=== PATIENT | female | born 1995 | race Caucasian/White ===

== ENCOUNTER 2016-08-11 04:34 | Emergency (ER) | payer OTHER ==
[2016-08-11] MEDS ORDERED: KETOROLAC 30 MG/ML VIAL (J1885) As Ordered ONE (07:26)
[2016-08-11 07:30] LABS: BASO % 0.6 % (0.0-1.0); EOS # 0.1 K/mm3 (0.0-0.50); EOS % 0.9 % (0.0-3.0); LARGE UNSTAINED CELL # 0.2 K/mm3 (0.0-0.4); LARGE UNSTAINED CELL % 1.9 % (0.0-4.0); LYMPH % 35.6 % (24.0-44.0); MEAN CORPUSCULAR HEMOGLOBIN 28.4 pg (27.0-33.0); MEAN CORPUSCULAR HGB CONC 31.1 g/dl (32.0-36.5); MEAN CORPUSCULAR VOLUME 91.5 fl (80.0-96.0); MONO # 0.5 K/mm3 (0.0-0.8); MONO % 5.5 % (0.0-5.0); NEUTROPHILS # 4.5 K/mm3 (1.8-7.7); NEUTROPHILS % 55.5 % (36.0-66.0); PLATELET COUNT, AUTOMATED 308 k/mm3 (150-450); RED CELL DISTRIBUTION WIDTH 14.7 % (11.5-14.5); WHITE BLOOD COUNT 8.1 K/mm3 (4.0-10.0)
[2016-08-11 08:00] LABS: ALBUMIN 4.3 GM/DL (3.2-5.2); ALBUMIN/GLOBULIN RATIO 1.43 (1.00-1.93); ALKALINE PHOSPHATASE 63 U/L (45-117); ALT/SGPT 22 U/L (12-78); ANION GAP 7 MEQ/L (8-16); AST/SGOT 16 U/L (15-37); BILIRUBIN,DIRECT 0.1 MG/DL (0.0-0.2); BILIRUBIN,TOTAL 0.5 MG/DL (0.2-1.0); BLOOD UREA NITROGEN 11 MG/DL (7-18); CARBON DIOXIDE LEVEL 28 MEQ/L (21-32); CHLORIDE LEVEL 107 MEQ/L (98-107); CREATININE FOR GFR 0.65 MG/DL (0.55-1.02); GLUCOSE, FASTING 78 MG/DL (70-105); POTASSIUM SERUM 3.9 MEQ/L (3.5-5.1); SODIUM LEVEL 142 MEQ/L (136-145); TOTAL PROTEIN 7.3 GM/DL (6.4-8.2)
--- NOTE | 2016-08-11 09:01 | REP ---
Pelvic ultrasound non OB 08/11/2016 Indication: Right lower quadrant pain for 3 days, 89 neural female Date of last menstrual period was 07/26/2016. The patient is G1, Ab 1 Technique: Transabdominal and transvaginal ultrasound was performed of the pelvis with nieto scale, color Doppler, and spectral wave Doppler imaging . Findings: Uterus measures 7.2 x 2.9 x 4.2 cm. The endometrium is 12.2 mm in thickness. Right ovary measures 5.6 x 4.9 by 6.2 cm and contains a complex cystic area measuring 4.9 x 4.5 x 5.3 cm with some internal layering contents of varying echogenicities. The left ovary measures 1.6 x 1.5 x 2.0 cm, contains small follicles and is unremarkable. Perfusion is noted to the bilateral ovaries, therefore no evidence of torsion bilaterally. There is no free fluid in cul-de-sac Impression 1. Complex ovoid right adnexal cystic mass measuring 4.9 x 4.5 x 5.3 cm with layering of internal contents of varying echogenicity. Differential diagnosis includes hemorrhagic cyst, dermoid, endometrioma. 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 2. Unremarkable left ovary. No evidence of ovarian torsion bilaterally. 3. Endometrium is 12.2 mm in thickness and smooth. 4. No free fluid in cul-de-sac Signed by Sherita Robins MD 08/11/2016 08:53 A
--- NOTE | 2016-08-11 09:34 | EDDOCDS ---
Nurse's Notes [facility] Name: Cecilia Ferrera Age: 20 yrs Sex: Female : 1995 Arrival Date: 08/11/2016 Time: 04:34 Bed I2 / M2 Private MD: Diagnosis: Other ovarian cysts-right complex ovarian cyst 4.9x4.5x5.3 cm Presentation: 08/11 04:44 Presenting complaint: Patient states: she has had right lower quadrant pain for 2 days cz no nausea or vomiting last meal 2200 chips and cookies. pt denies UTI symptoms. Risk factors: the patient reports no vaginal bleeding. Adult Sepsis Screening: The patient does not have new or worsening altered mentation. Patient's respiratory rate is less than 22. Systolic blood pressure is greater than 100. Patient has a qSOFA score of 0- Negative Sepsis Screen. Suicide/Homicide risk assessment- the patient denies having any suicidal and/or homicidal ideations and does not present with any other emotional, behavioral or mental health complaints. Status: The patient is a dependent. Transition of care: patient was not received from another setting of care. 04:44 Acuity: JIM Level 3 cz 04:44 Method Of Arrival: Walkin/Carried/Asstd cz Triage Assessment: 04:47 General: Appears uncomfortable. Pain: Location: right lower quadrant Pain currently is cz 8 out of 10 on a pain scale. Pt Declines HIV testing. 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 none - PMHx: hearing loss bilateral; - PSHx: Tubes in ears; Adenoidectomy; Tonsillectomy; - Social history: Smoking status: Patient states was never smoker of tobacco. No barriers to communication noted, The patient speaks fluent [place], Speaks appropriately for age. - Family history: Not pertinent. - : The pt / caregiver states he / she is not on anticoagulants. Home medication list is obtained from the patient. - Exposure Risk Screening:: None identified. Screenin:26 Screening information is obtained from the patient. Primary language is S[place] T[place]an. Fall jam1 risk: No risks identified. Assistance ADL's: requires no assistance with activities of daily living. Abuse/DV Screen: The patient / caregiver reports he/she is: not in a situation that causes fear, pain or injury. Nutritional screening: No deficits noted. Exposure Risk Screening: None identified. Advance Directives: Currently, there is no health care proxy. There is no active DNR order. There is no living will. There is no Power of Plumbing Designer. Advance directive information has not previously been placed in an [facility] medical record. Further advance directive information is declined. home support is adequate. Assessment: 06:54 Reassessment: Patient appears in no apparent distress at this time. pt states no change cz in pain level awaiting room placement. 07:44 General: Appears uncomfortable, well developed, well nourished, well groomed, Behavior dls is appropriate for age, cooperative. Neurological: No deficits noted. EENT: No deficits noted. Cardiovascular: No deficits noted. Respiratory: No deficits noted. GI: Abdomen is flat, Bowel sounds present X 4 quads. Abd is soft X 4 quads Abd is tender to palpation in right lower quadrant Reports nausea. : No deficits noted. Derm: No deficits noted. Musculoskeletal: No deficits noted. 09:31 Reassessment: Patient appears in no apparent distress at this time. Patient states ttb feeling better. Patient states symptoms have improved. pt states she is comfortable going home at this time and will f/u with LOFT PATTERNMAKER Friday.. Neurological: Level of Consciousness is awake, alert. Respiratory: No deficits noted. Vital Signs: 04:47 BP 130 / 66; Pulse 71; Resp 16; Temp 99.7(TE); Pulse Ox 100% on R/A; Weight 58.97 kg; cz Height 5 ft. 2 in. (157.48 cm); 06:54 BP 120 / 64; Pulse 64; Resp 16; Temp 98.8(TE); Pulse Ox 100% ; cz 08:06 BP 122 / 76; Pulse 73; Resp 18; Temp 98.3; Pulse Ox 99% ; Pain 2/10; jam1 09:26 BP 147 / 82; Pulse 76; Resp 18; Temp 97.9; Pulse Ox 100% ; Pain 2/10; jam1 04:47 Body Mass Index 23.78 (58.97 kg, 157.48 cm) cz Vitals: 04:47 Log In Time: August 11, 2016 at 04:34. ED Course: 04:35 Patient visited by Nini Garcia. gjb 04:35 Patient moved to Waiting gjb 04:41 Patient moved to Triage 1 cz 04:46 Triage Initiated cz 04:49 Patient moved to Pre RCE cz 06:57 Patient moved to I2 / M2 jam1 07:03 Raul Hernandez PA-C is PHCP. ar2 07:03 Ronnie Singh MD is Attending Physician. ar2 07:03 Patient visited by Raul Hernandez PA-C. ar2 07:04 Pt greeted and oriented to ED. Patient advised of names of staff involved in care, jam location of call jin, wait times and NPO status. Patient has correct armband on for positive identification. Placed in gown. Bed in low position. Call light in reach. Side rails up X 1. Adult w/ patient. Door closed. 07:29 Basic Metabolic Profile Sent. dls 07:29 CBC with Diff Sent. dls 07:29 Liver Profile Sent. dls 07:30 Inserted saline lock: 20 gauge in right antecubital area and blood collected. The dls patient tolerated the procedure well. No procedures done that require assistance. 08:05 Patient moved to Ultrasound sm5 08:31 Patient moved to I2 / M2 jam1 08:45 Patient visited by Mago Peterson RN. dls 09:13 -US Pelvic Non-Ob Complete Returned. EDMS 09:16 [facility] Payment Agreement was scanned into [employer] and attached to record. lg 09:19 Juanjose Garza is Referral Physician. ar2 09:25 Referral Physician role handed off by Juanjose Garza ar2 09:25 Jared Baxter MD is Referral Physician. ar2 09:31 The patient / caregiver is instructed regarding the plan of care and ED course. ttb 09:31 Discontinued IV lock intact, bleeding controlled, pressure dressing applied, No ttb redness/swelling at site. 09:31 Labs drawn. (by ED staff). Urine collected. Clean catch specimen. ttb Administered Medications: 07:29 Drug: ketorolac 30 mg [ketorolac 30 mg/mL (1 mL) injection solution (1 mL)] Route: IVP; dls Site: right antecubital; 09:33 Follow up: Response: No Adverse Reaction; Pain is decreased ttb Point of Care Testing: Urine : 07:22 hCG Reading: Negative; jam1 Ranges: Order Results: Lab Order: Basic Metabolic Profile; SPEC'M 08/11/16 07:24 Test: GLUCOSE, FASTING; Value: 78; Range: 70-105; Units: MG/DL; Status: F Test: BLOOD UREA NITROGEN; Value: 11; Range: 7-18; Units: MG/DL; Status: F Test: CREATININE FOR GFR; Value: 0.65; Range: 0.55-1.02; Units: MG/DL; Status: F Test: SODIUM LEVEL; Value: 142; Range: 136-145; Units: MEQ/L; Status: F Test: POTASSIUM SERUM; Value: 3.9; Range: 3.5-5.1; Units: MEQ/L; Status: F Test: CHLORIDE LEVEL; Value: 107; Range: 98-107; Units: MEQ/L; Status: F Test: CARBON DIOXIDE LEVEL; Value: 28; Range: 21-32; Units: MEQ/L; Status: F Test: ANION GAP; Value: 7; Range: 8-16; Abnormal: Below low normal; Units: MEQ/L; Status: F Test: CALCIUM LEVEL; Value: 9.0; Range: 8.5-10.1; Units: MG/DL; Status: F Lab Order: CBC with Diff; SPEC'M 08/11/16 07:24 Test: WHITE BLOOD COUNT; Value: 8.1; Range: 4.0-10.0; Units: K/mm3; Status: F Test: RED BLOOD COUNT; Value: 4.51; Range: 4.00-5.40; Units: M/mm3; Status: F Test: HEMOGLOBIN; Value: 12.8; Range: 12.0-16.0; Units: g/dl; Status: F Test: HEMATOCRIT; Value: 41.3; Range: 36.0-47.0; Units: %; Status: F Test: MEAN CORPUSCULAR VOLUME; Value: 91.5; Range: 80.0-96.0; Units: fl; Status: F Test: MEAN CORPUSCULAR HEMOGLOBIN; Value: 28.4; Range: 27.0-33.0; Units: pg; Status: F Test: MEAN CORPUSCULAR HGB CONC; Value: 31.1; Range: 32.0-36.5; Abnormal: Below low normal; Units: g/dl; Status: F Test: RED CELL DISTRIBUTION WIDTH; Value: 14.7; Range: 11.5-14.5; Abnormal: Above high normal; Units: %; Status: F Test: PLATELET COUNT, AUTOMATED; Value: 308; Range: 150-450; Units: k/mm3; Status: F Test: NEUTROPHILS %; Value: 55.5; Range: 36.0-66.0; Units: %; Status: F Test: LYMPH %; Value: 35.6; Range: 24.0-44.0; Units: %; Status: F Test: MONO %; Value: 5.5; Range: 0.0-5.0; Abnormal: Above high normal; Units: %; Status: F Test: EOS %; Value: 0.9; Range: 0.0-3.0; Units: %; Status: F Test: BASO %; Value: 0.6; Range: 0.0-1.0; Units: %; Status: F Test: LARGE UNSTAINED CELL %; Value: 1.9; Range: 0.0-4.0; Units: %; Status: F Test: NEUTROPHILS #; Value: 4.5; Range: 1.8-7.7; Units: K/mm3; Status: F Test: LYMPH #; Value: 3.0; Range: 1.5-6.5; Units: K/mm3; Status: F Test: MONO #; Value: 0.5; Range: 0.0-0.8; Units: K/mm3; Status: F Test: EOS #; Value: 0.1; Range: 0.0-0.50; Units: K/mm3; Status: F Test: BASO #; Value: 0.0; Range: 0.0-0.2; Units: K/mm3; Status: F Test: LARGE UNSTAINED CELL #; Value: 0.2; Range: 0.0-0.4; Units: K/mm3; Status: F Lab Order: Liver Profile; SPEC'M 08/11/16 07:24 Test: AST/SGOT; Value: 16; Range: 15-37; Units: U/L; Status: F Test: ALT/SGPT; Value: 22; Range: 12-78; Units: U/L; Status: F Test: ALKALINE PHOSPHATASE; Value: 63; Range: 45-117; Units: U/L; Status: F Test: BILIRUBIN,TOTAL; Value: 0.5; Range: 0.2-1.0; Units: MG/DL; Status: F Test: BILIRUBIN,DIRECT; Value: 0.1; Range: 0.0-0.2; Units: MG/DL; Status: F Test: TOTAL PROTEIN; Value: 7.3; Range: 6.4-8.2; Units: GM/DL; Status: F Test: ALBUMIN; Value: 4.3; Range: 3.2-5.2; Units: GM/DL; Status: F Test: ALBUMIN/GLOBULIN RATIO; Value: 1.43; Range: 1.00-1.93; Status: F Radiology Order: -US Pelvic Non-Ob Complete Test: -US Pelvic Non-Ob Complete REASON FOR EXAMINATION: Adnexal Pain r/o Torsion; Pelvic ultrasound non OB 08/11/2016; ; Indication: Right lower quadrant pain for 3 days, 89 neural female; ; Date of last menstrual period was 07/26/2016. The patient is G1, Ab 1; ; Technique: Transabdominal and transvaginal ultrasound was performed of the; pelvis with nieto scale, color Doppler, and spectral wave Doppler imaging .; ; Findings: Uterus measures 7.2 x 2.9 x 4.2 cm. The endometrium is 12.2 mm in; thickness.; ; Right ovary measures 5.6 x 4.9 by 6.2 cm and contains a complex cystic area; measuring 4.9 x 4.5 x 5.3 cm with some internal layering contents of varying; echogenicities.; ; The left ovary measures 1.6 x 1.5 x 2.0 cm, contains small follicles and is; unremarkable.; ; Perfusion is noted to the bilateral ovaries, therefore no evidence of torsion; bilaterally.; ; ; ; There is no free fluid in cul-de-sac; ; Impression; 1. Complex ovoid right adnexal cystic mass measuring 4.9 x 4.5 x 5.3 cm with; layering of internal contents of varying echogenicity. Differential diagnosis; includes hemorrhagic cyst, dermoid, endometrioma. 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 Unremarkable left ovary. No evidence of ovarian torsion bilaterally.; 3. Endometrium is 12.2 mm in thickness and smooth.; 4. No free fluid in cul-de-sac; ; ; Signed by; Sherita Robins MD 08/11/2016 08:53 A; Outcome: 09:20 Discharge ordered by Provider. ar2 09:31 Discharge Assessment: Patient awake, alert and oriented x 3. No cognitive and/or ttb functional deficits noted. Patient verbalized understanding of disposition instructions. Patient awake and alert. patient administered narcotics - no. The following High Risk Discharge criteria are identified: None. Discharged to home ambulatory, with significant other. Condition: good Condition: stable Condition: improved. Discharge instructions given to patient, significant other, Instructed on discharge instructions, follow up and referral plans. medication usage, Demonstrated understanding of instructions, medications, Pt was receptive of discharge instructions/ teaching. Prescriptions given X 1. Ultrasound Study completed. Property sent home with patient. 09:33 Patient left the ED. ttb Signatures: Dispatcher [employer] EDMS Mago Peterson RN RN dls Zecher, Calvin, RN RN Nubia Harp, STEREO COMPILER STEREO COMPILER jam1 Pao Gandara, Reg Reg lg Vaishnavi Almaraz sm5 Raul Hernandez, PA-Marianne PA-Marianne ar2 Zulma Ibrahim RN RN ttb Nini Garcia MTDD
--- NOTE | 2016-08-11 09:34 | EDDOCDS ---
Physician Documentation [facility] Name: Cecilia Ferrera Age: 20 yrs Sex: Female : 1995 Arrival Date: 08/11/2016 Time: 04:34 Bed I2 / M2 Private MD: Disposition: 08/11/16 09:20 Discharged to Home/Self Care. Impression: Other ovarian cysts - right complex ovarian cyst 4.9x4.5x5.3 cm. - Condition is Stable. - Discharge Instructions: Ovarian Cyst. - Prescriptions for Ibuprofen 600 mg Oral Tablet - take 1 tablet by ORAL route every 6 hours As needed take with food; 30 tablet. - Medication Reconciliation, Local Pharmacy Hours form. - Follow up: Juanjose Garza; When: Call to arrange an appointment; Reason: Recheck today's complaints, Continuance of care. Follow up: Jared Baxter MD; When: Call to arrange an appointment; Reason: Recheck today's complaints. Follow up: Emergency Department; When: As needed; Reason: Worsening of conditions. - Problem is new. - Symptoms have improved. - Notes: call for follow up appointment tomorrow to be seen on Friday Historical: - Allergies: No known drug Allergies; - Home Meds: 1. none - PMHx: hearing loss bilateral; - PSHx: Tubes in ears; Adenoidectomy; Tonsillectomy; - Social history: Smoking status: Patient states was never smoker of tobacco. No barriers to communication noted, The patient speaks fluent Greek, Speaks appropriately for age. - Family history: Not pertinent. - : The pt / caregiver states he / she is not on anticoagulants. Home medication list is obtained from the patient. - Exposure Risk Screening:: None identified. 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 2 in. (157.48 cm); 06:54 BP 120 / 64; Pulse 64; Resp 16; Temp 98.8(TE); Pulse Ox 100% ; cz 08:06 BP 122 / 76; Pulse 73; Resp 18; Temp 98.3; Pulse Ox 99% ; Pain 2/10; jam1 09:26 BP 147 / 82; Pulse 76; Resp 18; Temp 97.9; Pulse Ox 100% ; Pain 2/10; jam1 04:47 Body Mass Index 23.78 (58.97 kg, 157.48 cm) cz MDM: 07:10 IV Saline Lock ordered. ar2 07:10 UCG by Nursing ordered. ar2 07:10 Undress patient appropriately for examination ordered. ar2 07:10 ketorolac 30 mg IVP once; ADMINISTER IF NEGATIVE UCG ordered. ar2 07:11 Basic Metabolic Profile Ordered. EDMS 07:11 CBC with Diff Ordered. EDMS 07:11 Liver Profile Ordered. EDMS 07:11 NOTHING BY MOUTH+DIET ordered. EDMS 07:12 -US Pelvic Non-Ob Complete Ordered. EDMS 07:12 DUPLEX SCAN LIMITED (DOPPLER)+US Ordered. EDMS 07:56 Financial registration complete. lg 08:02 CBC with Diff Reviewed. ar2 08:04 Basic Metabolic Profile Reviewed. ar2 08:04 Liver Profile Reviewed. ar2 08:27 Transvaginal NON- US Ordered. EDMS 09:16 [facility] Payment Agreement was scanned into [employer] and attached to record. Point of Care Testing: Urine : 07:22 hCG Reading: Negative; jam1 Ranges: Administered Medications: 07:29 Drug: ketorolac 30 mg [ketorolac 30 mg/mL (1 mL) injection solution (1 mL)] Route: IVP; dls Site: right antecubital; 09:33 Follow up: Response: No Adverse Reaction; Pain is decreased ttb Signatures: Dispatcher [employer] EDMS Alexei Fisher, RN RN cz Pao Gandara, Reg Reg lg Raul Hernandez PA-C PA-C ar2 Zulma Ibrahim RN RN ttb Mago Peterson RN dls The chart was reviewed and I authenticate all verbal orders and agree with the evaluation and treatment provided.Attachments: 09:16 [facility] Payment Agreement lg MTDD
--- NOTE | 2016-08-13 10:35 | EDDOCDS ---
Physician Documentation [facility] Name: Cecilia Ferrera Age: 20 yrs Sex: Female : 1995 Arrival Date: 08/11/2016 Time: 04:34 Bed I2 / M2 Private MD: Disposition: 08/11/16 09:20 Discharged to Home/Self Care. Impression: Other ovarian cysts - right complex ovarian cyst 4.9x4.5x5.3 cm. - Condition is Stable. - Discharge Instructions: Ovarian Cyst. - Prescriptions for Ibuprofen 600 mg Oral Tablet - take 1 tablet by ORAL route every 6 hours As needed take with food; 30 tablet. - Medication Reconciliation, Local Pharmacy Hours form. - Follow up: Juanjose Garza; When: Call to arrange an appointment; Reason: Recheck today's complaints, Continuance of care. Follow up: Jared Baxter MD; When: Call to arrange an appointment; Reason: Recheck today's complaints. Follow up: Emergency Department; When: As needed; Reason: Worsening of conditions. - Problem is new. - Symptoms have improved. - Notes: call for follow up appointment tomorrow to be seen on Friday Historical: - Allergies: No known drug Allergies; - Home Meds: 1. none - PMHx: hearing loss bilateral; - PSHx: Tubes in ears; Adenoidectomy; Tonsillectomy; - Social history: Smoking status: Patient states was never smoker of tobacco. No barriers to communication noted, The patient speaks fluent Mauritanian, Speaks appropriately for age. - Family history: Not pertinent. - : The pt / caregiver states he / she is not on anticoagulants. Home medication list is obtained from the patient. - Exposure Risk Screening:: None identified. 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 2 in. (157.48 cm); 06:54 BP 120 / 64; Pulse 64; Resp 16; Temp 98.8(TE); Pulse Ox 100% ; cz 08:06 BP 122 / 76; Pulse 73; Resp 18; Temp 98.3; Pulse Ox 99% ; Pain 2/10; jam1 09:26 BP 147 / 82; Pulse 76; Resp 18; Temp 97.9; Pulse Ox 100% ; Pain 2/10; jam1 04:47 Body Mass Index 23.78 (58.97 kg, 157.48 cm) cz MDM: 07:10 IV Saline Lock ordered. ar2 07:10 UCG by Nursing ordered. ar2 07:10 Undress patient appropriately for examination ordered. ar2 07:10 ketorolac 30 mg IVP once; ADMINISTER IF NEGATIVE UCG ordered. ar2 07:11 Basic Metabolic Profile Ordered. EDMS 07:11 CBC with Diff Ordered. EDMS 07:11 Liver Profile Ordered. EDMS 07:11 NOTHING BY MOUTH+DIET ordered. EDMS 07:12 -US Pelvic Non-Ob Complete Ordered. EDMS 07:12 DUPLEX SCAN LIMITED (DOPPLER)+US Ordered. EDMS 07:56 Financial registration complete. lg 08:02 CBC with Diff Reviewed. ar2 08:04 Basic Metabolic Profile Reviewed. ar2 08:04 Liver Profile Reviewed. ar2 08:27 Transvaginal NON- US Ordered. EDMS 09:16 [facility] [place] Agreement was scanned into [employer] and attached to record. lg 20:07 T-Sheet-- Draft Copy was scanned into [employer] and attached to record. klr Point of Care Testing: Urine : 07:22 hCG Reading: Negative; jam1 Ranges: Administered Medications: 07:29 Drug: ketorolac 30 mg [ketorolac 30 mg/mL (1 mL) injection solution (1 mL)] Route: IVP; dls Site: right antecubital; 09:33 Follow up: Response: No Adverse Reaction; Pain is decreased ttb Signatures: Dispatcher [employer] EDMS Alexei Fisher RN RN cz Ganter, LoriLee, Raul Adams lg, PA-C PA-C ar2 Zulma Ibrahim RN RN ttb Redder, Kathie klr Scott, Debra RN dls The chart was reviewed and I authenticate all verbal orders and agree with the evaluation and treatment provided.Attachments: 09:16 [facility] [place] Agreement lg 20:07 T-Sheet-- Draft Copy klr Chart Complete MTDD
--- NOTE | 2016-08-13 10:35 | EDDOCDS ---
Nurse's Notes [facility] Name: Cecilia Ferrera Age: 20 yrs Sex: Female : 1995 Arrival Date: 08/11/2016 Time: 04:34 Bed I2 / M2 Private MD: Diagnosis: Other ovarian cysts-right complex ovarian cyst 4.9x4.5x5.3 cm Presentation: 08/11 04:44 Presenting complaint: Patient states: she has had right lower quadrant pain for 2 days cz no nausea or vomiting last meal 2200 chips and cookies. pt denies UTI symptoms. Risk factors: the patient reports no vaginal bleeding. Adult Sepsis Screening: The patient does not have new or worsening altered mentation. Patient's respiratory rate is less than 22. Systolic blood pressure is greater than 100. Patient has a qSOFA score of 0- Negative Sepsis Screen. Suicide/Homicide risk assessment- the patient denies having any suicidal and/or homicidal ideations and does not present with any other emotional, behavioral or mental health complaints. Status: The patient is a dependent. Transition of care: patient was not received from another setting of care. 04:44 Acuity: JIM Level 3 cz 04:44 Method Of Arrival: Walkin/Carried/Asstd cz Triage Assessment: 04:47 General: Appears uncomfortable. Pain: Location: right lower quadrant Pain currently is cz 8 out of 10 on a pain scale. Pt Declines HIV testing. 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 none - PMHx: hearing loss bilateral; - PSHx: Tubes in ears; Adenoidectomy; Tonsillectomy; - Social history: Smoking status: Patient states was never smoker of tobacco. No barriers to communication noted, The patient speaks fluent Cymro, Speaks appropriately for age. - Family history: Not pertinent. - : The pt / caregiver states he / she is not on anticoagulants. Home medication list is obtained from the patient. - Exposure Risk Screening:: None identified. Screenin:26 Screening information is obtained from the patient. Primary language is Cymro. Fall jam1 risk: No risks identified. Assistance ADL's: requires no assistance with activities of daily living. Abuse/DV Screen: The patient / caregiver reports he/she is: not in a situation that causes fear, pain or injury. Nutritional screening: No deficits noted. Exposure Risk Screening: None identified. Advance Directives: Currently, there is no health care proxy. There is no active DNR order. There is no living will. There is no Power of [employer]. Advance directive information has not previously been placed in an [facility] medical record. Further advance directive information is declined. home support is adequate. Assessment: 06:54 Reassessment: Patient appears in no apparent distress at this time. pt states no change cz in pain level awaiting room placement. 07:44 General: Appears uncomfortable, well developed, well nourished, well groomed, Behavior dls is appropriate for age, cooperative. Neurological: No deficits noted. EENT: No deficits noted. Cardiovascular: No deficits noted. Respiratory: No deficits noted. GI: Abdomen is flat, Bowel sounds present X 4 quads. Abd is soft X 4 quads Abd is tender to palpation in right lower quadrant Reports nausea. : No deficits noted. Derm: No deficits noted. Musculoskeletal: No deficits noted. 09:31 Reassessment: Patient appears in no apparent distress at this time. Patient states ttb feeling better. Patient states symptoms have improved. pt states she is comfortable going home at this time and will f/u with [facility] Friday.. Neurological: Level of Consciousness is awake, alert. Respiratory: No deficits noted. Vital Signs: 04:47 BP 130 / 66; Pulse 71; Resp 16; Temp 99.7(TE); Pulse Ox 100% on R/A; Weight 58.97 kg; cz Height 5 ft. 2 in. (157.48 cm); 06:54 BP 120 / 64; Pulse 64; Resp 16; Temp 98.8(TE); Pulse Ox 100% ; cz 08:06 BP 122 / 76; Pulse 73; Resp 18; Temp 98.3; Pulse Ox 99% ; Pain 2/10; jam1 09:26 BP 147 / 82; Pulse 76; Resp 18; Temp 97.9; Pulse Ox 100% ; Pain 2/10; jam1 04:47 Body Mass Index 23.78 (58.97 kg, 157.48 cm) cz Vitals: 04:47 Log In Time: August 11, 2016 at 04:34. ED Course: 04:35 Patient visited by Nini Garcia. gjb 04:35 Patient moved to Waiting gjb 04:41 Patient moved to Triage 1 cz 04:46 Triage Initiated cz 04:49 Patient moved to Pre RCE cz 06:57 Patient moved to I2 / M2 jam1 07:03 Raul Hernandez PA-C is PHCP. ar2 07:03 Ronnie Singh MD is Attending Physician. ar2 07:03 Patient visited by Raul Hernandez PA-C. ar2 07:04 Pt greeted and oriented to ED. Patient advised of names of staff involved in care, [facility] location of call jin, wait times and NPO status. Patient has correct armband on for positive identification. Placed in gown. Bed in low position. Call light in reach. Side rails up X 1. Adult w/ patient. Door closed. 07:29 Basic Metabolic Profile Sent. dls 07:29 CBC with Diff Sent. dls 07:29 Liver Profile Sent. dls 07:30 Inserted saline lock: 20 gauge in right antecubital area and blood collected. The dls patient tolerated the procedure well. No procedures done that require assistance. 08:05 Patient moved to Ultrasound sm5 08:31 Patient moved to I2 / M2 jam1 08:45 Patient visited by Mago Peterson RN. dls 09:13 -US Pelvic Non-Ob Complete Returned. EDMS 09:16 [facility] Payment Agreement was scanned into [employer] and attached to record. lg 09:19 Juanjose Garza is Referral Physician. ar2 09:25 Referral Physician role handed off by Juanjose Garza ar2 09:25 Jared Baxter MD is Referral Physician. ar2 09:31 The patient / caregiver is instructed regarding the plan of care and ED course. ttb 09:31 Discontinued IV lock intact, bleeding controlled, pressure dressing applied, No ttb redness/swelling at site. 09:31 Labs drawn. (by ED staff). Urine collected. Clean catch specimen. ttb 20:07 T-Sheet-- Draft Copy was scanned into [employer] and attached to record. klr Administered Medications: 07:29 Drug: ketorolac 30 mg [ketorolac 30 mg/mL (1 mL) injection solution (1 mL)] Route: IVP; dls Site: right antecubital; 09:33 Follow up: Response: No Adverse Reaction; Pain is decreased ttb Point of Care Testing: Urine : 07:22 hCG Reading: Negative; jam1 Ranges: Order Results: Lab Order: Basic Metabolic Profile; SPEC'M 08/11/16 07:24 Test: GLUCOSE, FASTING; Value: 78; Range: 70-105; Units: MG/DL; Status: F Test: BLOOD UREA NITROGEN; Value: 11; Range: 7-18; Units: MG/DL; Status: F Test: CREATININE FOR GFR; Value: 0.65; Range: 0.55-1.02; Units: MG/DL; Status: F Test: SODIUM LEVEL; Value: 142; Range: 136-145; Units: MEQ/L; Status: F Test: POTASSIUM SERUM; Value: 3.9; Range: 3.5-5.1; Units: MEQ/L; Status: F Test: CHLORIDE LEVEL; Value: 107; Range: 98-107; Units: MEQ/L; Status: F Test: CARBON DIOXIDE LEVEL; Value: 28; Range: 21-32; Units: MEQ/L; Status: F Test: ANION GAP; Value: 7; Range: 8-16; Abnormal: Below low normal; Units: MEQ/L; Status: F Test: CALCIUM LEVEL; Value: 9.0; Range: 8.5-10.1; Units: MG/DL; Status: F Lab Order: CBC with Diff; SPEC'M 08/11/16 07:24 Test: WHITE BLOOD COUNT; Value: 8.1; Range: 4.0-10.0; Units: K/mm3; Status: F Test: RED BLOOD COUNT; Value: 4.51; Range: 4.00-5.40; Units: M/mm3; Status: F Test: HEMOGLOBIN; Value: 12.8; Range: 12.0-16.0; Units: g/dl; Status: F Test: HEMATOCRIT; Value: 41.3; Range: 36.0-47.0; Units: %; Status: F Test: MEAN CORPUSCULAR VOLUME; Value: 91.5; Range: 80.0-96.0; Units: fl; Status: F Test: MEAN CORPUSCULAR HEMOGLOBIN; Value: 28.4; Range: 27.0-33.0; Units: pg; Status: F Test: MEAN CORPUSCULAR HGB CONC; Value: 31.1; Range: 32.0-36.5; Abnormal: Below low normal; Units: g/dl; Status: F Test: RED CELL DISTRIBUTION WIDTH; Value: 14.7; Range: 11.5-14.5; Abnormal: Above high normal; Units: %; Status: F Test: PLATELET COUNT, AUTOMATED; Value: 308; Range: 150-450; Units: k/mm3; Status: F Test: NEUTROPHILS %; Value: 55.5; Range: 36.0-66.0; Units: %; Status: F Test: LYMPH %; Value: 35.6; Range: 24.0-44.0; Units: %; Status: F Test: MONO %; Value: 5.5; Range: 0.0-5.0; Abnormal: Above high normal; Units: %; Status: F Test: EOS %; Value: 0.9; Range: 0.0-3.0; Units: %; Status: F Test: BASO %; Value: 0.6; Range: 0.0-1.0; Units: %; Status: F Test: LARGE UNSTAINED CELL %; Value: 1.9; Range: 0.0-4.0; Units: %; Status: F Test: NEUTROPHILS #; Value: 4.5; Range: 1.8-7.7; Units: K/mm3; Status: F Test: LYMPH #; Value: 3.0; Range: 1.5-6.5; Units: K/mm3; Status: F Test: MONO #; Value: 0.5; Range: 0.0-0.8; Units: K/mm3; Status: F Test: EOS #; Value: 0.1; Range: 0.0-0.50; Units: K/mm3; Status: F Test: BASO #; Value: 0.0; Range: 0.0-0.2; Units: K/mm3; Status: F Test: LARGE UNSTAINED CELL #; Value: 0.2; Range: 0.0-0.4; Units: K/mm3; Status: F Lab Order: Liver Profile; SPEC'M 08/11/16 07:24 Test: AST/SGOT; Value: 16; Range: 15-37; Units: U/L; Status: F Test: ALT/SGPT; Value: 22; Range: 12-78; Units: U/L; Status: F Test: ALKALINE PHOSPHATASE; Value: 63; Range: 45-117; Units: U/L; Status: F Test: BILIRUBIN,TOTAL; Value: 0.5; Range: 0.2-1.0; Units: MG/DL; Status: F Test: BILIRUBIN,DIRECT; Value: 0.1; Range: 0.0-0.2; Units: MG/DL; Status: F Test: TOTAL PROTEIN; Value: 7.3; Range: 6.4-8.2; Units: GM/DL; Status: F Test: ALBUMIN; Value: 4.3; Range: 3.2-5.2; Units: GM/DL; Status: F Test: ALBUMIN/GLOBULIN RATIO; Value: 1.43; Range: 1.00-1.93; Status: F Radiology Order: -US Pelvic Non-Ob Complete Test: -US Pelvic Non-Ob Complete REASON FOR EXAMINATION: Adnexal Pain r/o Torsion; Pelvic ultrasound non OB 08/11/2016; ; Indication: Right lower quadrant pain for 3 days, 89 neural female; ; Date of last menstrual period was 07/26/2016. The patient is G1, Ab 1; ; Technique: Transabdominal and transvaginal ultrasound was performed of the; pelvis with nieto scale, color Doppler, and spectral wave Doppler imaging .; ; Findings: Uterus measures 7.2 x 2.9 x 4.2 cm. The endometrium is 12.2 mm in; thickness.; ; Right ovary measures 5.6 x 4.9 by 6.2 cm and contains a complex cystic area; measuring 4.9 x 4.5 x 5.3 cm with some internal layering contents of varying; echogenicities.; ; The left ovary measures 1.6 x 1.5 x 2.0 cm, contains small follicles and is; unremarkable.; ; Perfusion is noted to the bilateral ovaries, therefore no evidence of torsion; bilaterally.; ; ; ; There is no free fluid in cul-de-sac; ; Impression; 1. Complex ovoid right adnexal cystic mass measuring 4.9 x 4.5 x 5.3 cm with; layering of internal contents of varying echogenicity. Differential diagnosis; includes hemorrhagic cyst, dermoid, endometrioma. [facility] follow-up is advised.; ; ; 2. Unremarkable left ovary. No evidence of ovarian torsion bilaterally.; 3. Endometrium is 12.2 mm in thickness and smooth.; 4. No free fluid in cul-de-sac; ; ; Signed by; Sherita Robins MD 08/11/2016 08:53 A; Outcome: 09:20 Discharge ordered by Provider. ar2 09:31 Discharge Assessment: Patient awake, alert and oriented x 3. No cognitive and/or ttb functional deficits noted. Patient verbalized understanding of disposition instructions. Patient awake and alert. patient administered narcotics - no. The following High Risk Discharge criteria are identified: None. Discharged to home ambulatory, with significant other. Condition: good Condition: stable Condition: improved. Discharge instructions given to patient, significant other, Instructed on discharge instructions, follow up and referral plans. medication usage, Demonstrated understanding of instructions, medications, Pt was receptive of discharge instructions/ teaching. Prescriptions given X 1. Ultrasound Study completed. Property sent home with patient. 09:33 Patient left the ED. ttb Signatures: Dispatcher [employer] EDMS Mago Peterson, Alexei Gilbert RN, RN RN cz Nubia Morales, COMMUNICATIONS ADVISOR COMMUNICATIONS ADVISOR jam1 Pao Gandara, Reg Reg lg Vaishnavi Almaraz sm5 Raul Hernandez, PAMara BANUELOS ar2 Zulma Ibrahim RN RN ttb Nini Garcia Kathie klr Chart Complete MTDD
--- NOTE | 2016-08-13 10:35 | EDDOCDS ---
Physician Documentation [facility] Name: Cecilia Ferrera Age: 20 yrs Sex: Female : 1995 Arrival Date: 08/11/2016 Time: 04:34 Bed I2 / M2 Private MD: Disposition: 08/11/16 09:20 Discharged to Home/Self Care. Impression: Other ovarian cysts - right complex ovarian cyst 4.9x4.5x5.3 cm. - Condition is Stable. - Discharge Instructions: Ovarian Cyst. - Prescriptions for Ibuprofen 600 mg Oral Tablet - take 1 tablet by ORAL route every 6 hours As needed take with food; 30 tablet. - Medication Reconciliation, Local Pharmacy Hours form. - Follow up: Juanjose Garza; When: Call to arrange an appointment; Reason: Recheck today's complaints, Continuance of care. Follow up: Jared Baxter MD; When: Call to arrange an appointment; Reason: Recheck today's complaints. Follow up: Emergency Department; When: As needed; Reason: Worsening of conditions. - Problem is new. - Symptoms have improved. - Notes: call for follow up appointment tomorrow to be seen on Friday Historical: - Allergies: No known drug Allergies; - Home Meds: 1. none - PMHx: hearing loss bilateral; - PSHx: Tubes in ears; Adenoidectomy; Tonsillectomy; - Social history: Smoking status: Patient states was never smoker of tobacco. No barriers to communication noted, The patient speaks fluent East Timorese, Speaks appropriately for age. - Family history: Not pertinent. - : The pt / caregiver states he / she is not on anticoagulants. Home medication list is obtained from the patient. - Exposure Risk Screening:: None identified. 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 2 in. (157.48 cm); 06:54 BP 120 / 64; Pulse 64; Resp 16; Temp 98.8(TE); Pulse Ox 100% ; cz 08:06 BP 122 / 76; Pulse 73; Resp 18; Temp 98.3; Pulse Ox 99% ; Pain 2/10; jam1 09:26 BP 147 / 82; Pulse 76; Resp 18; Temp 97.9; Pulse Ox 100% ; Pain 2/10; jam1 04:47 Body Mass Index 23.78 (58.97 kg, 157.48 cm) cz MDM: 07:10 IV Saline Lock ordered. ar2 07:10 UCG by Nursing ordered. ar2 07:10 Undress patient appropriately for examination ordered. ar2 07:10 ketorolac 30 mg IVP once; ADMINISTER IF NEGATIVE UCG ordered. ar2 07:11 Basic Metabolic Profile Ordered. EDMS 07:11 CBC with Diff Ordered. EDMS 07:11 Liver Profile Ordered. EDMS 07:11 NOTHING BY MOUTH+DIET ordered. EDMS 07:12 -US Pelvic Non-Ob Complete Ordered. EDMS 07:12 DUPLEX SCAN LIMITED (DOPPLER)+US Ordered. EDMS 07:56 Financial registration complete. lg 08:02 CBC with Diff Reviewed. ar2 08:04 Basic Metabolic Profile Reviewed. ar2 08:04 Liver Profile Reviewed. ar2 08:27 Transvaginal NON- US Ordered. EDMS 09:16 [facility] Payment Agreement was scanned into [employer] and attached to record. lg 20:07 T-Sheet-- Draft Copy was scanned into [employer] and attached to record. klr Point of Care Testing: Urine : 07:22 hCG Reading: Negative; jam1 Ranges: Administered Medications: 07:29 Drug: ketorolac 30 mg [ketorolac 30 mg/mL (1 mL) injection solution (1 mL)] Route: IVP; dls Site: right antecubital; 09:33 Follow up: Response: No Adverse Reaction; Pain is decreased ttb Signatures: Dispatcher [employer] EDMS Alexei Fisher RN RN cz Ganter, LoriLee, Raul Adams lg, PA-C PA-C ar2 Zulma Ibrahim RN RN ttb Redder, Kathie klr Scott, Debra RN dls The chart was reviewed and I authenticate all verbal orders and agree with the evaluation and treatment provided.Attachments: 09:16 [facility] Payment Agreement lg 20:07 T-Sheet-- Draft Copy klr Chart Complete MTDD
== END 2016-08-11 09:33 | disposition home or self-care (01) ==
LOC: M ED 04:34
DX: N83.201 Unspecified ovarian cyst, right side (principal)
CPT/HCPCS: 36415; 76830; 76856; 80048; 80076; 81025; 85025; 93976; 96374; 99284; J1885

== ENCOUNTER 2017-09-06 15:19 | Emergency (ER) | payer OTHER ==
[2017-09-06 17:03] LABS: KETONE, URINE AUTO RFX NEGATIVE (NEGATIVE); MUCUS, URINE RFX SMALL (NEGATIVE); NITRITE, URINE AUTO RFX NEGATIVE (NEGATIVE); RBC, URINE AUTO RFX 1 /HPF (0-3); SPECIFIC GRAVITY UR AUTO RFX 1.021 (1.002-1.035); SQUAM EPITHELIAL CELL UR AURFX 3 /HPF (0-6); WBC, URINE AUTO RFX 6 /HPF (0-3)
[2017-09-06 17:06] LABS: LEUKOCYTE ESTERASE UR AUTO RFX 2+ (NEGATIVE)
[2017-09-06 17:31] LABS: HCG, SERUM QUANTITATIVE 103316 MIU/ML
[2017-09-06] MEDS: NITROFURANTOIN (MACROBID) 100 MG CAP PO (20:00)
== END 2017-09-06 20:41 | disposition home or self-care (01) ==
LOC: M ED 15:19
DX: O23.11 Infections of bladder in pregnancy, first trimester (principal); Z3A.01 Less than 8 weeks gestation of pregnancy
CPT/HCPCS: 76801